=== PATIENT | male | born 1985 | race Caucasian/White ===

== ENCOUNTER 2016-10-10 16:20 | Emergency (ER) | payer BC ==
[2016-10-10 17:14] VITALS: BP 118/69
--- NOTE | 2016-10-10 17:23 | UC ---
Back Pain HPI - HPI Summary HPI Summary: PATIENT PRESENTS WITH RIGHT SIDED RIB PAIN AFTER FALLING 2 DAYS AGO AND RE- INJURING THE AREA. HE HAS A HISTORY OF 1X RIGHT RIB FX FROM 5 YEARS AGO AND STATED UNTIL 2 NIGHTS AGO AFTER RE-INJURY HE WAS FEELING OK WITH NO PAIN. DENIES CHEST PAIN OR PRESSURE. DENIES BACK PAIN. RIB PAIN IS DISCRETELY LOCATED ANTERIORLY OVER 6-8 RIB. - History of Current Complaint Chief Complaint: UCGeneralIllness Stated Complaint: S/P FALL RIGHT RIB PAIN Time Seen by Provider: 10/10/16 17:04 Hx Obtained From: Patient Onset/Duration: Sudden Onset Timing: Constant Severity Initially: Moderate Severity Currently: Moderate Pain Intensity: 8 Pain Scale Used: 0-10 Numeric Back Pain: Is Discrete @ - ANTERIOR RIGHT RIBS Character: Sharp, Aching Aggravating: Movement Alleviating: Rest, Position Associated Signs And Symptoms: Positive: Negative Related History: Similar Episode Dx As - PREVIOUS RIGHT RIB INJURY - Risk Factors AAA Risk Factors: Negative TAD Risk Factors: Negative Cauda Equina Risk Factors: Negative Epidural Abscess Risk Factors: Negative - Allergies/Home Medications Allergies/Adverse Reactions: Allergies Allergy/AdvReac Type Severity Reaction Status Date / Time No Known Allergies Allergy Verified 10/10/16 17:14 Home Medications: Home Medications NK [No Home Medications Reported] 10/10/16 [History Confirmed 10/10/16] PMH/Surg Hx/FS Hx/Imm Hx Previously Healthy: Yes - Surgical History Surgical History: None - Family History Known Family History: Positive: Unknown - Social History Occupation: Employed Full-time Lives: With Family Alcohol Use: Weekly Substance Use Type: None Smoking Status (MU): Light Every Day Tobacco Smoker Type: Cigarettes Amount Used/How Often: 1/2 ppd Review of Systems Constitutional: Negative Skin: Negative Respiratory: Negative Cardiovascular: Negative Motor: Negative Neurovascular: Negative Musculoskeletal: Arthralgia - RIGHT RIB PAIN Neurological: Negative Psychological: Negative All Other Systems Reviewed And Are Negative: Yes Physical Exam Triage Information Reviewed: Yes Appearance: Well-Appearing, No Pain Distress, Well-Nourished Vital Signs: Initial Vital Signs Temp 98.9 F 10/10/16 17:09 Pulse 86 10/10/16 17:09 Resp 15 10/10/16 17:09 BP 118/69 10/10/16 17:09 Pulse Ox 99 10/10/16 17:09 Vital Signs Reviewed: Yes Eyes: Positive: Conjunctiva Clear Dental Exam: Normal Neck exam: Normal Neck: Positive: Supple, No Lymphadenopathy Respiratory Exam: Normal Respiratory: Positive: Chest non-tender, Lungs clear Cardiovascular Exam: Normal Cardiovascular: Positive: RRR Bowel Sounds: Positive: Present Musculoskeletal Exam: Normal Musculoskeletal: Positive: Strength Intact Neurological Exam: Normal Neurological: Positive: Alert Psychological Exam: Normal Psychological: Positive: Normal Response To Family Skin Exam: Normal Back Pain Course/Dx - Course Course Of Treatment: PATIENT SENT TO XRAY FOR RIGHT RIBS. DENIES DIFFICULTY BREATHING OR SOB. 8th rib FRACTURE. NOTE GIVEN FOR LIGHT DUTY. IBUPROFEN. PATIENT OK WITH DISCHARGE. - Differential Dx/Diagnosis Differential Diagnosis/HQI/PQRI: Fracture, Strain, Sprain Provider Diagnoses: RIB FRACTURE Discharge - Discharge Plan Condition: Stable Disposition: HOME Patient Education Materials: Rib Fracture (ED) Forms: *Work Release Referrals: Kate Yee NP [Primary Care Provider] - Additional Instructions: Follow up with PCP for further evaluation. Ibuprofen 600mg three times daily for pain
--- NOTE | 2016-10-10 17:49 | RAD ---
INDICATION: Rib injury COMPARISON: None TECHNIQUE: Multiple views of the ribs were obtained. FINDINGS: Bones: There is a nondisplaced fractures of the anterolateral aspect of the right eighth rib. There are no other rib fractures. LUNGS: The lungs are clear. There is no pneumothorax. Pleural spaces: There is no evidence of hemothorax. Other: None IMPRESSION: NONDISPLACED RIGHT EIGHTH RIB FRACTURE.
== END 2016-10-10 18:12 | disposition home or self-care (01) ==
LOC: UCCORT 16:20
DX: S22.31XA Fracture of one rib, right side, initial encounter for closed fracture (principal); W19.XXXA Unspecified fall, initial encounter; Y93.9 Activity, unspecified; Y92.9 Unspecified place or not applicable; F17.210 Nicotine dependence, cigarettes, uncomplicated
CPT/HCPCS: 99201; G0463